=== PATIENT | male | born 1980 | race Caucasian/White ===

== ENCOUNTER 2016-09-11 18:23 | Emergency (ER) | payer OTHER ==
[~2016-09-11] VITALS: Ht 193 cm; Wt 127.0 kg
[2016-09-11 18:26] VITALS: BP 151/87
--- NOTE | 2016-09-11 18:48 | ED UPPER/LOWER EXTREMITY COMPL ---
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 UNSURE OF TETANUS STATUS Triage Nurses Notes Reviewed? 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 Tetanus is up-to-date. Patient only complains of 1 out of 10 pain Bleeding was controlled prior to arrival (SALENA LARES) Past History Travel History Traveled to [place] past 21 day No Medical History Any Pertinent Medical History? see below for history Neurological: NONE EENT: NONE Cardiovascular: NONE Respiratory: asthma Gastrointestinal: NONE Hepatic: NONE Renal: NONE Musculoskeletal: NONE Psychiatric: NONE Endocrine: diabetes Blood Disorders: NONE Cancer(s): NONE WELDER APPRENTICE/Reproductive: NONE Surgical History Surgical History: non-contributory Psychosocial History What is your primary language [place] Island[place] Tobacco Use: Never used ETOH Use: denies use Illicit Drug Use: denies illicit drug use Family History Hx Contributory? No (SALENA LARES) Review of Systems Review of Systems Constitutional: Reports: no symptoms. EENTM: Reports: no symptoms. Respiratory: Reports: no symptoms. Cardiovascular: Reports: no symptoms. Gastrointestinal/Abdominal: Reports: no symptoms. Genitourinary: Reports: no symptoms. Musculoskeletal: Reports: see HPI. Skin: Reports: see HPI. Neurological/Psychological: Reports: no symptoms. Hematologic/Endocrine: Reports: see HPI, bleeding. Immunological: Reports: no symptoms. All Other Systems: Reviewed and Negative (SALENA LARES) Physical Exam Physical Exam General Appearance: no apparent distress, alert, comfortable Neurologic/Tendon: normal sensation, normal motor functions, normal tendon functions, responds to pain, no evidence tendon injury, no pulse deficit Skin: normal color, warm/dry Comments: Well-developed well-nourished no apparent distress. HEENT: Atraumatic, extraocular motion intact Neck: Supple, no lymphadenopathy Back: Nontender Respiratory: No respiratory distress Neuro: Alert and oriented x3 Psych: Mood affect normal, normal memory normal judgment. Diagram Legs Front/Back 1) 1.5 cm subcutaneous flap laceration noted no active bleeding for lack of range of motion noted with straight leg raise full resisted range of motion noted with hip flexion of right side Full resisted range of motion noted with right knee extension no tendon deficit no exposed bone no exposed tendon (SALENA LARES) Progress Differential Diagnosis: arterial insufficiency, contusion, dislocation, DVT, fracture, gout, septic arthritis, sprain, tendon injury Plan of Care: No concerns of tendon deficit on examination. margins were revised the suture placement, patient tolerated well. Bacitracin bandage and Braulio wrap was applied pre-and post-neurovascular was intact (SALENA LARES) Departure Departure Disposition: HOME OR SELF CARE Condition: Stable Clinical Impression Primary Impression: Laceration of leg, right Referrals: LAVERN NEWMAN,ADITI Cervantes (PCP/Family) Additional Instructions: As discussed begin to apply bacitracin to the area once a day for the following 4 days then lead area open to improve healing. If you note signs of infection redness, pain, swelling, discharge return to the emergency room. Return to emergency room in 7 days for suture removal. Keep area dry and clean and YOU CAN Departure Forms: Customer Survey General Discharge Information (SALENA LARES) PA/JAVA PORTAL DEVELOPER Co-Sign Statement Statement: ED Attending supervision documentation- [] I saw and evaluated the patient. I have also reviewed all the pertinent lab results and diagnostic results. I agree with the findings and the plan of care as documented in the PA's/JAVA PORTAL DEVELOPER's documentation. [X] I have reviewed the ED Record and agree with the PA's/JAVA PORTAL DEVELOPER's documentation. [] Additions or exceptions (if any) to the PAs/JAVA PORTAL DEVELOPER's note and plan are summarized below: [] (AMILCAR NEWMAN,BEATRIZ Muniz) Procedures Laceration/Wound Repair Laceration/Wound Repair: Wound Location: lower extremity (RIGHT ANTERIOR QUADRICEP) Wound's Depth, Shape: flap, subcutaneous Wound Length (cm): 1.5 Wound Explored: clean, no foreign body removed, irrigated extensively Irrigated w/ Saline (ccs): 360 Betadine Prep? Yes Anesthesia: 1% lidocaine Volume Anesthetic (ccs): 5 Wound Repaired With: sutures Suture Size/Type: 4:0 Number of Sutures: 6 Layer Closure? No (SALENA LARES)
== END 2016-09-11 19:47 ==
LOC: ERH 18:23
DX: S81.811A Laceration without foreign body, right lower leg, initial encounter (principal); W29.3XXA Contact with powered garden and outdoor hand tools and machinery, initial encounter; Y93.H9 Activity, other involving exterior property and land maintenance, building and construction; Y92.9 Unspecified place or not applicable